=== PATIENT | female | born 1990 | race American Indian/Alaskan Native ===

== ENCOUNTER 2019-01-01 15:01 | Emergency (ER) | payer SELFPAY ==
[2019-01-01 16:27] VITALS: BP 123/73
--- NOTE | 2019-01-01 16:28 | Emergency Department Report ---
ED Female HPI - General Chief complaint: Abdominal Pain Stated complaint: ABD PAIN Time Seen by Provider: 01/01/19 16:23 Source: patient Mode of arrival: Ambulatory Limitations: No Limitations - History of Present Illness Initial comments: This is a 28-year-old -[place] female recently moved here from [place]. She received a call from the Health Department in [place] that reports prior partner was diagnosed with chlamydia. They advised her to get treated. She currently denies symptoms at this time. LMP 11/30/2018, A1. She denies urinary frequency, urgency, dysuria, vaginal bleeding, and vaginal discharge. MD Complaint: possible STD Onset/Timin -: days(s) Severity scale (0 -10): 0 Are you Now?: No Last Menstrual Period: 11/30/18 EDC: 09/06/19 Associated Symptoms: denies other symptoms - Related Data Sexually active: Yes : 1 Para: 0 A: 1 Allergies Allergy/AdvReac Type Severity Reaction Status Date / Time amoxicillin Allergy Swelling Verified 07/01/15 17:00 ED Review of Systems ROS: Stated complaint: ABD PAIN Other details as noted in HPI Constitutional: denies: chills, fever Respiratory: denies: cough, shortness of breath, wheezing Cardiovascular: denies: chest pain, palpitations Gastrointestinal: denies: abdominal pain, nausea, diarrhea Musculoskeletal: denies: back pain, joint swelling, arthralgia Skin: denies: rash, lesions Neurological: denies: headache, weakness, paresthesias Psychiatric: denies: anxiety, depression ED Past Medical Hx - Past Medical History Hx Asthma: Yes - Surgical History Past Surgical History?: No - Social History Smoking Status: Current Every Day Smoker Substance Use Type: Alcohol ED Physical Exam - General Limitations: No Limitations General appearance: alert, in no apparent distress - Respiratory Respiratory exam: Present: normal lung sounds bilaterally. Absent: respiratory distress - Cardiovascular Cardiovascular Exam: Present: regular rate, normal rhythm. Absent: systolic murmur, diastolic murmur, rubs, gallop - GI/Abdominal GI/Abdominal exam: Present: soft, normal bowel sounds. Absent: distended, tenderness, guarding, rebound, rigid, organomegaly, mass - Back Exam Back exam: Absent: CVA tenderness (R), CVA tenderness (L) - Neurological Exam Neurological exam: Present: alert, oriented X3, normal gait - Psychiatric Psychiatric exam: Present: normal affect, normal mood - Skin Skin exam: Present: warm, dry, intact, normal color. Absent: rash ED Course Vital Signs 01/01/19 01/01/19 16:25 16:27 Temperature 98.1 F 98.1 F Pulse Rate 72 72 Respiratory 18 18 Rate Blood Pressure 123/73 Blood Pressure 123/73 [Right] O2 Sat by Pulse 100 100 Oximetry ED Medical Decision Making - Medical Decision Making This is a 28-year-old -[place] male who presents with recent STD exposure. Patient was examined by me. Vitals are stable and in no acute distress. Patient is asymptomatic. No labs ordered. Empirically treated with Rocephin 250 mg IM and azithromycin 1 g by mouth. Referral to the [facility] for follow-up STD screening. Discharged home in stable condition. Discussed prevention options. F/U with PCP or Health Department. Critical care attestation.: If time is entered above; I have spent that time in minutes in the direct care of this critically ill patient, excluding procedure time. ED Disposition Clinical Impression: STD exposure Disposition: DC-01 TO HOME OR SELFCARE Is pt being admited?: No Does the pt Need Aspirin: No Condition: Stable Instructions: Chlamydia Infection (ED), Sexually Transmitted Diseases (ED), Safe Sex (ED) Additional Instructions: Avoid drinking alcohol for 24 hours. Continue safe sexual intercourse. Follow up with Primary Care Provider or health department. Referrals: [facility] [Outside] - 3-5 Days [facility] [Outside] - 3-5 Days [facility] [Outside] - 3-5 Days Time of Disposition: 16:35
[2019-01-01] MEDS ORDERED: ROCEPHIN IM ONE (16:39)
[2019-01-01] MEDS ORDERED: ZITHROMAX PO ONE (16:39)
[2019-01-01] MEDS ORDERED: XYLOCAINE 1% MPF 5 mL INFILTRATI ONE (16:39)
== END 2019-01-01 16:45 | disposition home or self-care (01) ==
LOC: ED 15:01
DX: Z20.2 Contact with and (suspected) exposure to infections with a predominantly sexual mode of transmission (principal); F17.200 Nicotine dependence, unspecified, uncomplicated; J45.909 Unspecified asthma, uncomplicated
CPT/HCPCS: 96372; 99283; J0696

== ENCOUNTER 2021-11-02 19:34 | Emergency (ER) | payer MEDICAID ==
[2021-11-02] MEDS ORDERED: KETOROLAC 30 MG/1 ML INJ IV ONE (21:55)
[2021-11-02] MEDS ORDERED: ACETAMINOPHEN 500 MG TAB PO ONE (21:55)
[2021-11-02] MEDS ORDERED: SODIUM CHLORIDE 0.9% 1000 ML 1,000 ML IV ONE (21:55)
--- NOTE | 2021-11-02 22:21 | Emergency Department Report ---
ED Fever HPI - General Chief Complaint: Fever Stated Complaint: FEVER/CHILLS - History of Present Illness Initial Comments: Patient is a 31-year-old female with no significant past medical history presents emergency department complaint of fevers and diarrhea. Patient states that other people in her home have similar symptoms including her son who is a lso a patient. Patient states that she has had symptoms for the past few days. She has not had any significant nausea or vomiting. She states she has not been able to take any meds for self as she has been try to take care of her son. She also feels that she could be dehydrated as she has had poor oral intake. ED Review of Systems ROS: Stated complaint: FEVER/CHILLS Other details as noted in HPI Constitutional: chills, fever Eyes: denies: eye pain ENT: denies: throat pain Respiratory: cough. denies: orthopnea Cardiovascular: denies: chest pain, palpitations Endocrine: no symptoms reported Gastrointestinal: abdominal pain, diarrhea Genitourinary: denies: urgency, dysuria, discharge Musculoskeletal: denies: back pain, joint swelling, arthralgia Skin: denies: rash, lesions Neurological: denies: headache, weakness, paresthesias Psychiatric: denies: anxiety, depression Hematological/Lymphatic: denies: easy bleeding, easy bruising ED Past Medical Hx - Past Medical History Hx Asthma: Yes - Surgical History Past Surgical History?: No - Social History Smoking Status: Never Smoker Substance Use Type: None ED Physical Exam - General Limitations: No Limitations General appearance: alert, in no apparent distress - Head Head exam: Present: atraumatic, normocephalic - Eye Eye exam: Present: normal appearance - ENT ENT exam: Present: mucous membranes moist - Neck Neck exam: Present: normal inspection - Respiratory Respiratory exam: Present: normal lung sounds bilaterally. Absent: respiratory distress - Cardiovascular Cardiovascular Exam: Present: regular rate, normal rhythm. Absent: systolic murmur, diastolic murmur, rubs, gallop - GI/Abdominal GI/Abdominal exam: Present: soft, normal bowel sounds - Rectal Rectal exam: Present: deferred - Extremities Exam Extremities exam: Present: normal inspection - Back Exam Back exam: Present: normal inspection - Neurological Exam Neurological exam: Present: alert, oriented X3 - Psychiatric Psychiatric exam: Present: normal affect, normal mood - Skin Skin exam: Present: warm, dry, intact, normal color. Absent: rash ED Course Vital Signs 11/02/21 11/03/21 19:45 00:26 Temperature 99.8 F H 99.1 F Pulse Rate 96 H 88 Respiratory 16 16 Rate Blood Pressure 142/82 132/80 [Left] O2 Sat by Pulse 100 99 Oximetry - Reevaluation(s) Reevaluation #1: Patient is improved after meds and fluids. Potassium ordered for repletion. ED Medical Decision Making - Lab Data Result diagrams: 11/02/21 23:01 11/02/21 23:01 - Medical Decision Making This is a 31-year-old female with no significant past medical history here with complaint of fever, diarrhea. Other people in the home have similar symptoms. Discussed with patient that this is likely viral illness. Plan for basic labs as patient is concerned she could be dehydrated. Will give Tylenol, Toradol, IV fluids and reassess. Patient also to be tested for flu. I have discussed COVID-19 testing with the patient and this will have to be done at a different facility as we do not offer it for patients being discharged. Critical care attestation.: If time is entered above; I have spent that time in minutes in the direct care of this critically ill patient, excluding procedure time. ED Disposition Clinical Impression: Fever, Acute gastroenteritis Disposition: HOME / SELF CARE / HOMELESS Is pt being admited?: No Does the pt Need Aspirin: No Condition: Stable Instructions: Viral Gastroenteritis, Adult, [id number], Food Choices to Help Relieve Diarrhea, Adult Additional Instructions: We will call you with your flu results. Please attempt to get COVID-19 testing this weekend and limit your contact with others. Referrals: PRIMARY CAREMD [Primary Care Provider] - 3-5 Days ADELA ROBLERO MD [Staff Physician] - 3-5 Days Time of Disposition: 00:02
[2021-11-02 23:48] LABS: Hematocrit 34.5 % (30.3-42.9); Mean Corpuscular HGB Conc 32 % (30-34); Mean Corpuscular Volume 84 fl (79-97); Platelet Count 171 K/mm3 (140-440); Red Cell Distribution Width 14.4 % (13.2-15.2)
[2021-11-02 23:52] LABS: Alanine Aminotransferase 13 units/L (7-56); Blood Urea Nitrogen 9 mg/dL (7-17); Calcium 8.7 mg/dL (8.4-10.2); Hemolysis Index 4
[2021-11-02 23:57] LABS: BUN/Creatinine Ratio 13
[2021-11-03] MEDS ORDERED: POTASSIUM CHLORIDE ER 20 MEQ TAB PO ONE
[2021-11-03 00:27] VITALS: BP 132/80
[2021-11-03 03:51] LABS: Anisocytosis 1+; Total Cells Counted 100
[2021-11-03 03:52] LABS: Platelet Estimate Consistent w Auto
== END 2021-11-03 00:27 | disposition home or self-care (01) ==
LOC: ED 19:34
DX: R50.9 Fever, unspecified (principal); K52.9 Noninfective gastroenteritis and colitis, unspecified
CPT/HCPCS: 36415; 80053; 85007; 85025; 87400; 96361; 96374; 99283; J1885; J7030; Q0162